=== PATIENT | male | born 1985 | race Caucasian/White ===

== ENCOUNTER 2016-05-14 17:55 | Inpatient (IN) | payer OTHER ==
--- NOTE | ~2016-05-14 | DS ---
Unit #: [id number] #: [id number] Patient: [facility]OS[facility] [id number] [facility] [address] [place] [address] [id number] MR#: [id number] NAME: MOMO SOSA ROOM: [facility] Age: 31 Sex: M Admission Date: 05/14/2016 : 1985 Discharge Date: 05/19/2016 Attending Physician: Anita Nunez M.D. Primary Care Physician: Generic Doctor Not In System DISCHARGE SUMMARY IDENTIFYING DATA Mr. Sosa is a 31-year-old white male, who is a resident of [place], [place], and was self-referred to the hospital on a voluntary basis. DISCHARGE DIAGNOSES Psychiatric: Bipolar disorder, most recent episode depressed, recurrent, moderate, without psychotic features; opioid dependence, moderate and acute withdrawals; methamphetamine dependence, moderate. Medical: None. Stressors: Moderate psychosocial stressors. HISTORY OF PRESENT ILLNESS Please see initial psychiatric evaluation for details. PAST PSYCHIATRIC HISTORY Please see initial psychiatric evaluation for details. PAST MEDICAL HISTORY Please see initial psychiatric evaluation for details. HOSPITAL COURSE The patient was admitted to the adult psychiatric and chemical dependency unit at [facility] and was oriented to the hospital environment. Routine p.r.n. medications were initiated, and he was started back on his home medications and detox protocol for opioids was initiated as well and he was closely monitored. He was taking the medications regularly and was tolerating them fairly well and was able to show a decent and therapeutic response and as such, it was decided that he will be discharged home and will continue treatment on an outpatient basis. DISCHARGE MEDICATIONS Eskalith CR 450 mg in the morning for depression, and Effexor XR 75 mg b.i.d. for depression. DISCHARGE CONDITION Stable. PROGNOSIS Fair. Dictated by... Anita Nunez M.D. Unit #: [id number] #: [id number] Patient: MOMO SOSA IAA/modl TD: 05/19/2016 07:27 JOB #: [id number] DISCHARGE SUMMARY Page 1 of 1 X Anita Nunez MD X DISCHARGE SUMMARY
--- NOTE | ~2016-05-14 | PA ---
Unit #: [id number] #: [id number] Patient: MOMO SOSA [id number] [facility] [address] [place] [address] [id number] MR#: [id number] NAME: MOMO SOSA ROOM: P212 Age: 31 Sex: M Admission Date: 05/14/2016 : 1985 Date of Assessment: Attending Physician: Anita Nunez M.D. Admitting Physician: Anita Nunez M.D. PSYCHIATRIC ASSESSMENT DATE OF SERVICE 05/14/2016. IDENTIFYING DATA Mr. Sosa is a 31-year-old white male, who is a resident of [place], [place], and was self-referred to the hospital on a voluntary basis. CHIEF COMPLAINT "I got arrested last night and I took an unknown amount of meth and heroin last night." HISTORY OF PRESENT ILLNESS Mr. Sosa is a 31-year-old white male with history of substance abuse and dependence, who was self-referred to the hospital reporting that he apparently took an unknown amount of meth and heroin last night and got arrested and that he believes that he overdosed from heroin and methamphetamine and that he was given Narcan and reports last night he had a razor blade to his neck to kill himself and that his depression is related to being an employee of the [employer] and now his friends are arresting him for using substances and that he is having suicidal ideation with plan to overdose on heroin. He does report increasing depression, anxiety, irritability, restlessness, feelings of hopelessness and helplessness, and poor social support system, and significant consequences because of his addiction and does report suicidal ideation with intent and plan and was seen to be a danger to self and as such, recommendation for inpatient level of care for safety and stabilization was made and the patient was transferred to us. SUBSTANCE ABUSE HISTORY The patient has history of experimentation and abuse of alcohol, cocaine, opioids, amphetamines, and currently it appears that opioids has been his drug of choice along with methamphetamine as he has been using both of them on "regular basis." PAST PSYCHIATRIC HISTORY The patient has not had any prior inpatient or outpatient psychiatric treatment, though it appears that he has been diagnosed and treated for bipolar disorder and is currently on a combination of Effexor and lithium. PAST MEDICAL HISTORY The patient's medical history is significant for hypertension. Unit #: [id number] #: [id number] Patient: MOMO SOSA ALLERGIES No known medication allergies. PERSONAL AND SOCIAL HISTORY A 31-year-old white male, who reports that he is single, and homeless and has poor social support system. MENTAL STATUS EXAMINATION Young white male who was casually dressed with fair personal hygiene, appears to be in no acute distress or discomfort. He was awake and alert on interaction with intact orientation to time, place, and person. His mood was anxious and depressed with a congruent affect. His speech was slow and goal directed. His thought processes were disorganized with some looseness of associations and flight of ideas and suicidal ideations. His insight and judgment remain significantly impaired. DIAGNOSTIC IMPRESSION Psychiatric: Bipolar disorder, most recent episode depressed, recurrent, moderate, without psychotic features; opioid dependence, moderate and acute withdrawals; methamphetamine dependence, moderate. Medical: None. Stressors: Psychosocial stressors. TREATMENT PLAN 1. The patient has presented with history of substance abuse and mood disorder, and has been decompensating and will need inpatient hospitalization for safety and stabilization. We will start him back on his home medications. We will adjust the medications and monitor response. 2. Supportive therapy was provided to the patient. 3. Safe, structured, and nourishing environment will be provided. ESTIMATED LENGTH OF STAY 4 to 5 days. ABILITY TO HELP SELF Limited. WILLINGNESS TO HELP SELF The patient appears to be willing to help self. STRENGTHS 1. Communicative. 2. Cooperative. PROBLEMS 1. Chronic dysphoric symptoms. 2. Poor social support system. DISCHARGE CRITERIA This will be contingent upon the patient's ability to show resolution of his depression and anxiety and his ability to stay safe to himself, particularly after discharge from the hospital. Dictated by... Anita Nunez M.D. IAA/glendyl Unit #: [id number] #: [id number] Patient: MOMO SOSA TD: 05/15/2016 08:25 JOB #: [id number] PSYCHIATRIC ASSESSMENT Page 1 of 1 X Anita Nunez MD PSYCHIATRIC ASSESSMENT
--- NOTE | ~2016-05-14 | PN ---
Unit #: [id number] #: [id number] Patient: MOMO SOSA [id number] [facility] [address] [place] [address] [id number] I MR#: [id number] NAME: MOMO SOSA ROOM: P212 Age: 31 Sex: M Admission Date: 05/14/2016 : 1985 Attending Physician: Anita Nunez M.D. Admitting Physician: Anita Nunez M.D. Primary Care Physician: Champ Doctor Not In System [facility] PROGRESS NOTES DATE 05/15/2016 DISCUSSION Mr. Sosa is a 31-year-old white male with substance abuse and mood disorder who was seen today and chart was reviewed and case was discussed with the staff. He has been anxious, withdrawn and in distress and discomfort as he goes through detox. Meanwhile, he has been taking medications and tolerating them fairly well with no reported side effects. MENTAL STATUS EXAMINATION Young white male who was casually dressed with fair personal hygiene and appears to be in no acute distress or discomfort. He was awake and alert with intact orientation. His mood was anxious with congruent affect. He denies any suicidal or homicidal ideations. His insight and judgement remain slightly impaired. TREATMENT PLAN 1. Will continue his current medications and treatment protocol. Will monitor his response and make further adjustments as needed. 2. Will continue to follow up. Dictated by... Satinder Hanson/anton TD: 05/15/2016 18:08 JOB #: [id number] Unit #: [id number] #: [id number] Patient: MOMO SOSA [facility] PROGRESS NOTES Page 1 of 1 X Anita Nunez MD PROGRESS NOTE
--- NOTE | ~2016-05-14 | HP ---
Unit #: [id number] #: [id number] Patient: RICHARD SOSA [id number] [place] [address] [id number] I MR#: [id number] NAME: RICHARD SOSA ROOM: P212 Age: 31 Sex: M Admission Date: 05/14/2016 : 1985 Attending Physician: Anita Nunez M.D. Admitting Physician: Anita Nunez M.D. Primary Care Physician: Generic Doctor Not In System HISTORY AND PHYSICAL HISTORY OF PRESENT ILLNESS Richard is a 31 year old admitted to [address] [place] [address] because of his polysubstance abuse which includes IV heroin and methamphetamine. PAST MEDICAL HISTORY Long history of IV drug use. PAST SURGICAL HISTORY Vasectomy. ALLERGIES No known drug allergies. SOCIAL HISTORY Smokes 1 pack per day. Denies alcohol. Admits to a long history of illicit drug use to include IV drugs. FAMILY HISTORY Medically noncontributory. REVIEW OF SYSTEMS CONSTITUTIONAL: No fever or chills. HEENT: Denies any sore throat, ear pain or runny nose. CARDIOVASCULAR: Denies chest pain, irregular heart rhythm or palpitations. CHEST: Denies shortness of breath or cough. No hemoptysis. GASTROINTESTINAL: Denies nausea, vomiting, diarrhea or chronic constipation. ENDOCRINE: Denies history of increased thirst or urination. No recent significant weight loss or gain. GENITOURINARY: Denies dysuria, frequency, or hematuria. SKIN: Denies any rashes. HEMATOLOGIC: Denies history of increased bleeding or bruising. MUSCULOSKELETAL: Denies any hot, swollen joints. No generalized muscle pain. NEUROLOGIC: Denies problems with vision or speech. No frequent, severe headaches. No numbness, tingling or weakness in any extremities. Denies loss of bladder or bowel control. CURRENT MEDICATIONS 1. Detox protocol. 2. Effexor XR 75 mg b.i.d. 3. Eskalith CR 450 mg q.a.m. 4. Flomax 0.4 mg q.h.s. Unit #: [id number] #: [id number] Patient: RICHARD SOSA PHYSICAL EXAMINATION GENERAL: Alert, well-nourished, in no apparent distress. VITAL SIGNS: Blood pressure 124/76, heart rate 80, respirations 16, temperature 98.6. WEIGHT: 170. HEIGHT: 5 feet 10 inches. SKIN: Warm and dry without rash or lesion. HEENT: Normocephalic. TMs not viewed. Oral and nasal passages clear. Conjunctivae clear. PERRLA. EOMs intact. NECK: Supple without lymphadenopathy or thyromegaly. HEART: Regular rate and rhythm without murmur. LUNGS: Clear. ABDOMEN: Soft, nontender. : Not done. EXTREMITIES: No evidence of cyanosis, clubbing or edema. Moves all without focal deficit. NEUROLOGICAL: Grossly within normal limits. Cranial Nerves: II: Visual archer are intact. III, IV AND : Extraocular movements are intact. Pupils are equal, round and reactive to light. V: Facial sensation is grossly normal. VII: Facial movements and expression are normal. VIII: Auditory acuity grossly intact. IX, X: Uvula is midline. Phonation is normal. XI: Patient shrugs shoulders and turns head normally. XII: Tongue protrudes in the midline. Sensory and Motor Function: Sensory and motor sensation is grossly normal. Motor: moves all extremities well. Coordination: Gait is normal. Deep Tendon Reflexes: Intact. IMPRESSION Psychiatric admission. RECOMMENDATIONS PSYCHIATRIC: Per psychiatrist. MEDICAL: See no contraindications to participate in facility's activities. MEDICAL PROGNOSIS Good. MEDICAL CONDITION Stable. Dictated by... Inna Mccann P.A.-C. for Satinder [place]/anton TD: 05/15/2016 16:27 JOB #: [id number] Unit #: [id number] #: [id number] Patient: RICHARD SOSA HISTORY AND PHYSICAL Page 1 of 1 X Inna Mccann HISTORY AND PHYSICAL
--- NOTE | ~2016-05-14 | PN ---
Unit #: [id number] #: [id number] Patient: MOMO SOSA [id number] [facility] [address] [place] [address] [id number] I MR#: [id number] NAME: MOMO SOSA ROOM: P212 Age: 31 Sex: M Admission Date: 05/14/2016 : 1985 Attending Physician: Anita Nunez M.D. Admitting Physician: Anita Nunez M.D. Primary Care Physician: Cahmp Doctor Not In System [facility] PROGRESS NOTES DATE OF SERVICE: 05/17/2016 SUBJECTIVE Mr. Sosa is a 31-year-old white male who was seen today and chart was reviewed, and case was discussed with the staff. He has been anxious, withdrawn, though has not shown any agitation or irritability and has been cooperative with treatment recommendation as he has been taking medications and tolerating them fairly well with no reported side effects. MENTAL STATUS EXAMINATION Young white male who was casually dressed with a fair personal hygiene and appears to be in no acute distress or discomfort. He was awake and alert on interaction with intact orientation. His mood was anxious with a congruent affect. His speech was slow and goal directed. He denies any suicidal or homicidal ideation, and also denies any auditory or visual hallucinations. His insight and judgment remain slightly impaired. TREATMENT PLAN 1. We will continue him on his current medications and treatment protocol. We will monitor his response to the medication and make further adjustments as needed. 2. We will continue to follow up. Dictated by... Satinder Hanson/anselmo TD: 05/19/2016 07:35 JOB #: [id number] [facility] PROGRESS NOTES Page 1 of 1 X Anita Nunez MD PROGRESS NOTE
--- NOTE | ~2016-05-14 | PN ---
Unit #: [id number] #: [id number] Patient: MOMO SOSA [id number] [facility] [address] [place] [address] [id number] I MR#: [id number] NAME: MOMO SOSA ROOM: P212 Age: 31 Sex: M Admission Date: 05/14/2016 : 1985 Attending Physician: Anita Nunez M.D. Admitting Physician: Anita Nunez M.D. Primary Care Physician: Champ Doctor Not In System [facility] PROGRESS NOTES DATE 05/16/2016 DISCUSSION Mr. Sosa is a 31year-old, white male with substance abuse and mood disorder who was seen today and chart was reviewed and case was discussed with the staff. He reports not feeling good and has been complaining of persistent anxiety and restlessness and feeling uncomfortable though he has been taking medications and tolerating them fairly well with no reported side effects. MENTAL STATUS EXAM Young white male who was casually dressed with fair personal hygiene, appears to be in no acute distress or discomfort. He was awake and alert on interaction with intact orientation. His mood was anxious with congruent affect. He denies any suicidal or homicidal ideation. His insight and judgement remains slightly impaired. TREATMENT PLAN 1. We will continue him on his current treatment protocol. We will monitor his response and make further adjustments as needed. 2. We will continue to follow up. Dictated by... Satinder Hanson/alvino TD: 05/18/2016 04:15 JOB #: [id number] Unit #: [id number] #: [id number] Patient: MOMO SOSA [facility] PROGRESS NOTES Page 1 of 1 X Anita Nunez MD X PROGRESS NOTE
--- NOTE | ~2016-05-14 | PN ---
Unit #: [id number] #: [id number] Patient: MOMO SOSA [id number] [facility] [address] [place] [address] [id number] I MR#: [id number] NAME: MOMO SOSA ROOM: P212 Age: 31 Sex: M Admission Date: 05/14/2016 : 1985 Attending Physician: Anita Nunez M.D. Admitting Physician: Anita Nunez M.D. Primary Care Physician: Generic Doctor Not In System [facility] PROGRESS NOTES DATE May 18, 2016 DISCUSSION Mr. Sosa is a 31-year-old white male, who was seen today and chart was reviewed and the case was discussed with the staff. He has been doing fairly well with no agitation, irritability, and he has been calm and cooperative and has been taking the medications and tolerating them fairly well with no reported side effects. MENTAL STATUS EXAMINATION Young white male, who was casually dressed with fair personal hygiene and appears to be in no acute distress or discomfort. He was awake and alert on interaction with intact orientation. His mood is anxious with a congruent affect. His speech is slow and goal-directed. He denies any suicidal or homicidal ideations. His insight and judgment remain slightly impaired. TREATMENT PLAN 1. We will continue him on his current treatment protocol, and will monitor his response to the medications, and make further adjustments as needed. 2. We will continue to followup. Dictated by... Satinder Hanson/jamari TD: 05/20/2016 06:33 JOB #: [id number] Unit #: [id number] #: [id number] Patient: MOMO SOSA PROGRESS NOTES Page 1 of 1 X Anita Nunez MD X PROGRESS NOTE
[2016-05-15 09:23] LABS: BASOPHIL% 0.6 % (0-2.5); EOSINOPHIL# 0.3 X10e3 (0-0.7); EOSINOPHIL% 6.5 % (0.0-7.0); HEMATOCRIT 44.8 % (38.0-50.0); HEMOGLOBIN 14.7 gm/dL (13.0-16.0); LYMPHOCYTE# 1.9 X10e3 (1.0-3.5); LYMPHOCYTE% 35.7 % (17.0-45.0); MEAN CELL VOLUME 83.8 FL (83-96); MEAN CORPUSCULAR HEMOGLOBIN 27.5 PG (28-34); MEAN CORPUSCULAR HGB CONC 32.9 g/dL (30-36); MONOCYTE# 0.7 X10e3 (0-1.0); MONOCYTE% 12.4 % (3.0-12.0); NEUTROPHIL# 2.4 X10e3 (1.5-7.1); NEUTROPHIL% 44.8 % (40-75); PLATELET COUNT 201 X10e3 (140-420); RED BLOOD COUNT 5.35 X10e (3.90-5.60); RED CELL DISTRIBUTION WIDTH 14.5 % (11.0-15.5); WHITE BLOOD COUNT 5.3 X10e3 (4.0-10.5)
[2016-05-15 09:25] LABS: DIFF IND NO
[2016-05-15 09:47] LABS: THYROID STIMULATING HORMONE 0.23 uIU/ml (0.34-5.60)
[2016-05-15 09:54] LABS: FREE THYROXIN (T4) 0.87 ng/dL (0.58-1.64)
[2016-05-15 09:55] LABS: ALBUMIN SERUM 3.8 g/dL (3.5-5.0); BILIRUBIN,TOTAL 0.6 mg/dL (0.2-2.0); CALCIUM SERUM 8.9 mg/dL (8.4-10.2); GLOM FILT RATE Estimated 99.9 mL/min (>60); POTASSIUM 3.7 mmol/L (3.5-5.1); PROTEIN TOTAL SERUM 6.7 g/dL (6.0-8.3)
[2016-05-18 09:27] LABS: URINE APPEARANCE CLEAR; URINE BILIRUBIN NEG (NEG); URINE BLOOD NEG (NEG); URINE COLOR YELLOW; URINE GLUCOSE NEG (NEG); URINE KETONE NEG (NEG); URINE LEUKOCYTE ESTERASE TRACE (NEG); URINE NITRATE NEG (NEG); URINE PH 6.5 (5-8); URINE PROTEIN NEG (NEG); URINE SPECIFIC GRAVITY 1.007 (1.003-1.035); URINE UROBILINOGEN 0.2 MG/DL (NEG)
[2016-05-18 09:32] LABS: URBCS1 AUWI 0-2 /[HPF] (0-2); URINE BACTERIA AUWI NEG (NEGATIVE); URINE SQUAMOUS EPITHELIAL CELL NONE SEEN /[HPF]
[2016-05-18 10:12] LABS: AMPHETAMINE POS (NEG); BARBITURATES NEG (NEG); BENZODIAZEPINES NEG (NEG); COCAINE NEG (NEG); MARIJUANA NEG (NEG); OPIATES NEG (NEG); TRICYCLIC ANTIDEPRESSANTS NEG (NEG); U METHADONE NEG (NEG)
== END 2016-05-19 13:21 | disposition home or self-care (01) | DRG 885 ==
LOC: P2S 17:55
PROVIDERS: Psychiatry & Neurology Psychiatry
PROC: HZ2ZZZZ Detoxification Services for Substance Abuse Treatment (ICD-10-PCS; principal; 2016-05-14)
DX: F31.9 Bipolar disorder, unspecified (principal); F15.20 Other stimulant dependence, uncomplicated; I10 Essential (primary) hypertension; F11.23 Opioid dependence with withdrawal; F17.210 Nicotine dependence, cigarettes, uncomplicated
CPT/HCPCS: 80053; 80178; 80307; 81003; 84439; 84443; 85025; 86592